=== PATIENT | male | born 1955 | race Caucasian/White ===

== ENCOUNTER 2019-01-06 07:04 | Outpatient (CLI) | payer OTHER, SELFPAY ==
[2019-01-08 09:22] LABS: PSA, Screening 1.3 ng/ml (0-4.5)
== END 2019-01-06 07:24 ==
PROVIDERS: PCP Family Medicine; Visit Provider Family Medicine
DX: Z12.5 Encounter for screening for malignant neoplasm of prostate (principal)
CPT/HCPCS: 36415; 84153

== ENCOUNTER 2019-11-24 05:57 | Outpatient (CLI) | payer OTHER, SELFPAY ==
[2019-11-24 10:24] LABS: ALT 82 U/L (16-63); AST 51 U/L (15-37); Albumin 4.1 g/dL (3.4-5.0); Alkaline Phosphatase 114 U/L (46-116); Anion Gap 7.5 mmol/L (3-11); BUN 12 mg/dL (7-18); Bilirubin, Total 0.5 mg/dL (0.2-1.0); CO2 30.5 mmol/L (21.0-32.0); CREATININE 0.92 mg/dL (0.70-1.30); Calcium 9.3 mg/dL (8.5-10.1); Calculated LDL 149 mg/dL; Chloride 103 mmol/L (98-107); Cholesterol 226 mg/dL (<200); Glucose 103 mg/dL (74-106); HDL Cholesterol 54 mg/dL (40-60); Potassium 5.1 mmol/L (3.5-5.1); Sodium 141 mmol/L (136-145); Total Protein 7.4 g/dL (6.4-8.2); Triglyceride 117 mg/dL (<150)
[2019-11-24 10:34] LABS: Uric Acid 4.7 mg/dL (3.5-7.2)
== END 2019-11-24 06:17 ==
PROVIDERS: PCP Family Medicine; Visit Provider Family Medicine
DX: M10.9 Gout, unspecified (principal); Z13.220 Encounter for screening for lipoid disorders
CPT/HCPCS: 36415; 80053; 80061; 84550

== ENCOUNTER 2020-02-14 02:21 | Outpatient (CLI) | payer MEDICARE, OTHER, SELFPAY ==
[2020-02-14 08:27] LABS: ALT 52 U/L (16-63); AST 34 U/L (15-37); Albumin 4.2 g/dL (3.4-5.0); Alkaline Phosphatase 103 U/L (46-116); Bilirubin, Total 0.5 mg/dL (0.2-1.0); Total Protein 7.4 g/dL (6.4-8.2)
== END 2020-02-14 02:41 ==
PROVIDERS: PCP Family Medicine; Visit Provider Family Medicine
DX: R74.8 Abnormal levels of other serum enzymes (principal)
CPT/HCPCS: 36415; 80076

== ENCOUNTER 2022-03-30 11:56 | Outpatient (CLI) | payer MEDICARE, OTHER, SELFPAY ==
--- NOTE | 2022-03-30 11:15 | DI.RAD_ITS ---
Exam(s) XR SHOULDER RT COMPLETE 2+V EXAM: XR SHOULDER RT COMPLETE 2+V CLINICAL HISTORY: RIGHT SHOULDER PAIN. TECHNIQUE: 2D digital imaging was performed. COMPARISON: No exams were available for comparison FINDINGS: Two views No evidence of fracture or dislocation. No calcifications in the subacromial space. However, there is a 3 x 3 millimeter calcific density interposed between the inferior articular surfaces of the elena ral head and osseous glenoid. Possible loose body at this level versus calcification in the inferior labrum. Doubtful appearance 4 osseous Bankart lesion. No lytic nor blastic osseous lesions evident . IMPRESSION: DATA REPOSITORY: RADIATION DOSE DELIVERED:
== END 2022-03-30 11:57 | disposition home or self-care (01) ==
LOC: DIORS 11:56
PROVIDERS: PCP Family Medicine; Referring Provider Family Medicine; Visit Provider Student in an Organized Health Care Education/Training Program
DX: R93.7 Abnormal findings on diagnostic imaging of other parts of musculoskeletal system; M89.9 Disorder of bone, unspecified; M75.51 Bursitis of right shoulder; S49.81XA Other specified injuries of right shoulder and upper arm, initial encounter; T50.Z95A Adverse effect of other vaccines and biological substances, initial encounter
CPT/HCPCS: 20610; 99204; 73030; J1030

== ENCOUNTER → 2022-06-02 08:15 | Outpatient (BNVA) | payer MEDICARE, OTHER, SELFPAY | PROVIDERS: PCP Family Medicine; Referring Provider Family Medicine; Visit Provider Student in an Organized Health Care Education/Training Program | DX: S49.81XA Other specified injuries of right shoulder and upper arm, initial encounter (principal); X58.XXXA Exposure to other specified factors, initial encounter; T50.Z95A Adverse effect of other vaccines and biological substances, initial encounter; M75.51 Bursitis of right shoulder | CPT/HCPCS: 99213 ==

== ENCOUNTER → 2023-07-18 13:13 | Outpatient (CLI) | payer MEDICARE, OTHER, SELFPAY ==
--- NOTE | 2023-07-18 10:45 | DI.RAD_ITS ---
Exam(s) XR CHEST 2V PA LATERAL EXAM: XR CHEST 2V PA LATERAL CLINICAL HISTORY: New onset wheezing, some dyspnea,r06.2 TECHNIQUE: 2D digital imaging was performed of the chest. Two images were obtained. PA and lateral views were obtained. COMPARISON: No exams were available for comparison FINDINGS: MEDIASTINUM: Normal. HEART: Normal. PULMONARY VASCULATURE: Normal. LUNGS: Clear. PLEURAL SPACE: No pleural effusion or pneumothorax. BONE:Within normal limits for the patient's age. OTHER FINDINGS:Normal. IMPRESSION: No acute pulmonary findings. DATA REPOSITORY: RADIATION DOSE DELIVERED:
== END ==
PROVIDERS: PCP Family Medicine; Visit Provider Family Medicine
DX: R06.2 Wheezing (principal)
CPT/HCPCS: 71046

== ENCOUNTER → 2023-11-03 08:40 | Outpatient (BNVA) | payer MEDICARE, OTHER, SELFPAY | PROVIDERS: PCP Family Medicine; Referring Provider Family Medicine; Visit Provider Student in an Organized Health Care Education/Training Program | DX: J45.909 Unspecified asthma, uncomplicated (principal); Z79.51 Long term (current) use of inhaled steroids | CPT/HCPCS: 99213 ==

== ENCOUNTER 2024-05-07 06:03 | Outpatient (CLI) | payer MEDICARE, SELFPAY ==
[2024-05-07 07:55] LABS: ALT 34 U/L (16-63); AST 24 U/L (15-37); Alkaline Phosphatase 93 U/L (46-116); Anion Gap 8.4 mmol/L (3-11); BUN 15 mg/dL (7-18); Bilirubin, Total 0.4 mg/dL (0.2-1.0); CO2 30.6 mmol/L (21.0-32.0); Calcium 9.5 mg/dL (8.5-10.1); Calculated LDL 126 mg/dL (<100); Chloride 102 mmol/L (98-107); Cholesterol 203 mg/dL (<200); Estimated GFR 80.97 (mL/min/1.73m2); Glucose 106 mg/dL (74-106); HDL Cholesterol 58 mg/dL (40-60); Potassium 4.2 mmol/L (3.5-5.1); Sodium 141 mmol/L (136-145); Total Protein 7.6 g/dL (6.4-8.2); Triglyceride 98 mg/dL (<150)
[2024-05-07 19:49] LABS: PSA, Screening 2.6 ng/mL (<=6.5)
== END 2024-05-07 06:04 | disposition home or self-care (01) ==
LOC: LBO 06:03
PROVIDERS: PCP Family Medicine; Visit Provider Family Medicine
DX: Z13.6 Encounter for screening for cardiovascular disorders (principal); Z12.5 Encounter for screening for malignant neoplasm of prostate
CPT/HCPCS: 36415; 80053; 80061; 84153

== ENCOUNTER → 2024-11-05 08:47 | Outpatient (BNVA) | payer MEDICARE, SELFPAY | PROVIDERS: PCP Family Medicine; Referring Provider Family Medicine; Visit Provider Physician Assistant Surgical | DX: J45.909 Unspecified asthma, uncomplicated (principal) | CPT/HCPCS: 99214 ==

== ENCOUNTER 2025-04-25 03:17 | Outpatient (CLI) | payer MEDICARE, SELFPAY ==
[2025-04-25 10:29] LABS: HCT 44.1 % (40.0-50.0); HGB 14.7 g/dL (13.5-17.5); MCH 30.1 pg (27.0-33.0); MCHC 33.3 % (32.0-36.0); MCV 90 fL (80-95); Platelet Count 306 10^3/uL (130-400); RBC 4.88 10^6/uL (4.36-5.78); RDW 12.7 % (11.8-14.1); RDW-SD 41.6 fL; WBC 7.44 10^3/uL (4.4-10.8)
[2025-04-25 11:19] LABS: TSH (W/Ref FT4) 2.87 uIU/mL (0.36-3.74); Uric Acid 5.6 mg/dL (3.5-7.2)
== END 2025-04-25 03:18 | disposition home or self-care (01) ==
PROVIDERS: PCP Family Medicine; Visit Provider Family Medicine
DX: R53.83 Other fatigue (principal); M10.9 Gout, unspecified
CPT/HCPCS: 36415; 85027; 84443; 84550

== ENCOUNTER 2025-04-29 06:12 | Emergency (ER) | payer MEDICARE, SELFPAY ==
[2025-04-29 06:14] VITALS: BP 174/96; PULSE 100; RESP 18; TEMP 36.2; O2SAT 99
--- NOTE | 2025-04-29 06:30 | DI.RAD_ITS ---
Exam(s) XR SHOULDER LT COMPLETE 2+V EXAM: XR SHOULDER LT COMPLETE 2+V CLINICAL HISTORY: Shoulder pain worsening over the last 2 to 3 weeks. TECHNIQUE: 2D digital imaging was performed of the left shoulder. Five images were obtained. AP, G rashey, Y-view and axillary views were obtained. COMPARISON: No exams were available for comparison FINDINGS: BONES: No acute fracture is present. No bony destructive lesion is seen. JOINTS: No dislocation present. There are mild degenerative changes seen at the acromioclavicular radha nt. The glenohumeral joint is well maintained. SOFT TISSUE: Normal. IMPRESSION: 1. Mild degenerative changes seen at the acromioclavicular joint. 2. No acute fracture or dislocation. 3. The preliminary [facility] report was reviewed. DATA REPOSITORY: RADIATION DOSE DELIVERED:
--- NOTE | 2025-04-29 06:30 | DI.RAD_ITS ---
Exam(s) XR SHOULDER RT COMPLETE 2+V EXAM: XR SHOULDER RT COMPLETE 2+V CLINICAL HISTORY: Shoulder pain worsening over the last 2 to 3 weeks. TECHNIQUE: 2D digital imaging was performed of the right shoulder. Five images were obtained. AP, Grashey, Y-view and axillary views were obtained. COMPARISON: CR XR SHOULDER RT COMPLETE 2+V from 03/30/2022 FINDINGS: BONES: No acute fracture is present. No bony destructive lesion is seen. JOINTS: No dislocation present. There is downward sloping of the lateral acromion. The glenohumeral joint is well maintained. Minimal degenerative changes are seen at the acromioclavicular joint. SOFT TISSUE: The calcification adjacent to the inferior glenoid is unchanged. IMPRESSION: 1. Mild degenerative changes seen in the right shoulder which appears stable. 2. No acute fracture or dislocation. 3. The preliminary [facility] report was reviewed. DATA REPOSITORY: RADIATION DOSE DELIVERED:
--- NOTE | 2025-04-29 07:02 | W.ED.GENAD ---
Discharge Plan Disposition Patient Disposition: Home Condition: Good Discharge Details Clinical Impression: Bilateral shoulder pain Primary Care Provider: Abdon Stephens ED Provider: Alysha Pearson Home Meds and New Rx's Prescriptions: New lidocaine [Lidoderm] 5 % adhesive patch,medicated 1 patch Topical Q24H Qty: 15 0RF No Action acetaminophen [Tylenol Extra Strength] 500 mg tablet 500 mg PO DIRECTED PRN calcium carb-D3-mag [id number] [phone] go-gcso-yx-mg tablet 1 tab PO DAILY Rx Instructions: administer with a meal allopurinol 100 mg tablet 200 mg PO DAILY Qty: 180 3RF Rx Instructions: two 100 mg tablets daily for gout ibuprofen 200 mg tablet 200 mg PO Q6H PRN albuterol sulfate [Ventolin HFA] 90 mcg/actuation HFA aerosol inhaler 2 puff inhalation QID PRN (Reason: shortness of breath or wheezing) Qty: 8.5 3RF budesonide-formoterol [Symbicort] 80-4.5 mcg/actuation HFA aerosol inhaler 2 puff inhalation BID Qty: 10.2 12RF multivitamin [Daily-Josefina] 1 EACH tablet 1 ea PO DAILY Discharge Instructions Instructions: Shoulder Pain ED Additional Instructions: Although there are no fractures in your shoulder, I am concerned that you may have bursal irritation and arthritis in your shoulder causing the pain. Please apply the Voltaren gel 3 times daily. Please continue to take Tylenol every 6 hours. Please ice your shoulders frequently whenever your pain returns. Please follow-up closely with your physical therapist. I have included phone numbers for physical therapy below, please contact them at your earliest convenience to set up an appointment time. If despite this conservative therapy you still have pain after a month or 2 of therapy and medication treatment, you may require further follow-up with an interior specialist. If you notice any worsening of your symptoms, or any new symptoms such as vomiting, diarrhea, fever, chills, shortness of breath, chest pain, numbness, weakness, or fainting , please return immediately to the emergency department for reevaluation. Please follow up with your primary care provider as soon as possible for reassessment and reevaluation. As always, it was a pleasure participating in your medical care today. Stand Alone Forms: Physical Therapy Referral Referrals: Abdon Stephens DO [Primary Care Provider] - [facility] General Date/Time Provider Initiated Documentation: 04/29/25 06:15. [facility] Narrative: This is a 69-year-old male with a past medical history of gout, previous vaccine related shoulder injury, asthma, who presents today for evaluation of shoulder pain bilaterally. Patient has a history of chronic pain today shoulders. However over the last few weeks it has been worsening. He has been applying Voltaren gel once daily at night, he has been taking occasional NSAID therapy, but despite this the pain has been worsening. The pain is bilateral, worse on the left than the right. He denies any recent ulcer or trauma. He did have a fall a few months ago, but nothing recently. He does admit to utilizing his shoulders much more these last few weeks because of out side chores and projects. He denies any chest pain or shortness of breath. He denies numbness or tingling. No other complaints at this time. Pain is made worse with movement of his shoulders. It is worse when he lies down flat. It is slightly improved when he sits up. He did recently see his primary care provider and declined physical therapy for shoulders at that time, however he feels that it might be the next best option now. Related Data Home Medications ?Medication ?Instructions ?Recorded ?Confirmed multivitamin (Daily-Josefina tablet) 1 ea PO DAILY 12/24/16 04/29/25 acetaminophen 500 mg tablet 500 mg PO DIRECTED PRN 08/02/23 04/29/25 (Tylenol Extra Strength) calcium 333 mg-vit D3 200 1 tab PO DAILY 08/02/23 04/29/25 unit-magnesium 133 mg-zinc 5 mg tablet allopurinol 100 mg tablet 200 mg (2 x 100 mg) PO DAILY #180 04/19/24 04/29/25 tab-caps albuterol sulfate 90 mcg/actuation 2 puff inhalation QID PRN 11/05/24 04/29/25 aerosol inhaler (Ventolin HFA) shortness of breath or wheezing #8.5 grams budesonide-formoterol HFA 80 2 puff inhalation BID #10.2 grams 11/05/24 04/29/25 mcg-4.5 mcg/actuation aerosol inhaler (Symbicort) ibuprofen 200 mg tablet 200 mg PO Q6H PRN 11/05/24 04/29/25 lidocaine 5 % topical patch 1 patch topical Q24H #15 ea 04/29/25 (Lidoderm) Previous Rx's ?Medication ?Instructions ?Recorded allopurinol 100 mg tablet 200 mg (2 x 100 mg) PO DAILY #180 04/19/24 tab-caps albuterol sulfate 90 mcg/actuation 2 puff inhalation QID PRN 11/05/24 aerosol inhaler (Ventolin HFA) shortness of breath or wheezing #8.5 grams budesonide-formoterol HFA 80 2 puff inhalation BID #10.2 grams 11/05/24 mcg-4.5 mcg/actuation aerosol inhaler (Symbicort) lidocaine 5 % topical patch 1 patch topical Q24H #15 ea 04/29/25 (Lidoderm) Allergies Allergy/AdvReac Type Severity Reaction Status Date / Time No Known Allergies Allergy Verified 04/29/25 06:23 General Stated Complaint: Nk/Back Pain KENNEDI: 3 Exam Narrative Exam Narrative: 1.Const: Well-nourished, Well-developed, appearing stated age 2.Eyes: PERRL, no conjunctival injection, and symmetrical lids. 3.ENT: Atraumatic external nose and ears. Moist MM. Neck: Symmetric, trachea midline, No thyromegaly. 4.CVS: +S1/S2, Peripheral pulses 2+ and equal in all extremities. Brisk capillary refill in all extremities. 5.RESP: Unlabored respiratory effort. Clear to auscultation bilaterally. No wheezes rales or rhonchi 6.GI: Soft, Nontender/Nondistended, No hepatosplenomegaly. No guarding or rebound. 7.MSK: Bilateral shoulders demonstrate restriction in motion in most all directions. Bilateral shoulders have tenderness on palpation of the anterior aspect of the shoulder around the biceps tendon in the shoulder joint, as well as significant point tenderness in the shoulder joint in the posterior component. Pain is made worse significantly with external rotation, as well as the empty can test. No redness or warmth to suggest cellulitis or acute gout. 8.Skin: Warm, Dry. No rashes or lesions. 9.Neuro: enforcement safety officer II-XII grossly intact. Sensation grossly intact, no focal neurologic deficits. 10.Psych: (AAO) x3. Appropriate mood and affect Course Vital Signs Vital signs: Vital Signs Temperature 36.2 C L 04/29/25 06:14 Pulse 100 H 04/29/25 06:14 Respiratory Rate 18 04/29/25 06:14 Blood Pressure 174/96 H 04/29/25 06:14 Pulse Oximetry 99 04/29/25 06:14 Temperature 36.2 C L 04/29/25 06:14 Temperature Source Oral 04/29/25 06:14 Pulse 100 H 04/29/25 06:14 Respiratory Rate 18 04/29/25 06:14 Blood Pressure 174/96 H 04/29/25 06:14 Blood Pressure Position Sitting 04/29/25 06:14 Pulse Oximetry 99 04/29/25 06:14 Oxygen Delivery Method Room Air 04/29/25 06:14 Oxygen Flow Rate 0 04/29/25 06:14 Pain Level 10 04/29/25 06:18 Medical Decision Making This is a 69-year-old male with a past medical history of gout, previous vaccine related shoulder injury, asthma, who presents today for evaluation of shoulder pain bilaterally. Patient has a history of chronic pain today shoulders. However over the last few weeks it has been worsening. He has been applying Voltaren gel once daily at night, he has been taking occasional NSAID therapy, but despite this the pain has been worsening. The pain is bilateral, worse on the left than the right. He denies any recent ulcer or trauma. He did have a fall a few months ago, but nothing recently. He does admit to utilizing his shoulders much more these last few weeks because of out side chores and projects. He denies any chest pain or shortness of breath. He denies numbness or tingling. No other complaints at this time. Pain is made worse with movement of his shoulders. It is worse when he lies down flat. It is slightly improved when he sits up. He did recently see his primary care provider and declined physical therapy for shoulders at that time, however he feels that it might be the next best option now. Bilateral shoulders demonstrate restriction in motion in most all directions. Bilateral shoulders have tenderness on palpation of the anterior aspect of the shoulder around the biceps tendon in the shoulder joint, as well as significant point tenderness in the shoulder joint in the posterior component. Pain is made worse significantly with external rotation, as well as the empty can test. No redness or warmth to suggest cellulitis or acute gout. Concern for chronic arthritis leading to mild chronic bursitis. Acute gouty shoulders appears less likely based on clinical assessment. Family feels very strongly about getting x-rays at this time, we will get x-rays for further assessment although I feel that a an acute fracture is unlikely. We will recommend continued Tylenol at home, Voltaren gel 3 times daily, physical therapy, and close follow-up with PCP. If conservative therapy like this fails to improve his symptoms he may require further outpatient orthopedic follow-up. Patient will be signed out to my colleague for follow-up on x-rays. Quality:SDOH Health Related Social Needs: No Data to Display PFSH All Active Problems (Updated 04/29/25 @ 07:07 by Capo Espinosa DO) Bilateral shoulder pain (Acute) Arthritis of both shoulders (Acute) Asthma (Chronic) Nail dystrophy (Acute) Onychauxis (Acute) Shoulder injury related to vaccine administration (SIRVA) (Acute) Bursitis of shoulder, right (Acute) Gout (Chronic 11/05/09) hyperuricemia, h/o podogra ~1989 Surgical History S/P excision of lipoma Hx of appendectomy Family History Mother , heart issues at age 88. Depression Anxiety Sister , lung ca at age 55. Neoplasm Daughter Anxiety Social History Smoking/Tobacco Use Status: Never Second Hand Exposure: No Smoking risk assessment performed?: Yes Alcohol Intake: never Drug use: Never Substance use type: does not use Counseling given: No Adopted: No Caregiver/Support person: No Foster care: No Household members: spouse Housing: house Number of Children: 2 number of grandchildren: 4 Communication Needs: Corrective Lenses Education Level: high school Do you need help understanding health information?: Never current occupation: Retired Pets and animals: Yes (1) Pets and animals: cat(s) Sexually active: Yes Do you think of yourself as: straight/heterosexual Current gender identity: male What is your relationship status?: How often do you talk on the phone with friends or family?: once per week How often do you get together with friends or relatives?: twice per week How often do you attend rastafarian or rastafarian services?: 4 or more times per year Do you belong to any clubs or organized social groups?: decline to answer Panel score (0-1 are the most socially isolated patients): 3 What type of physical activity do you participate in: walking Duration: 15-30 minutes/day Frequency: 1-2 times per week Bobbi/Sikhism: Baptist Special bobbi needs: No Seatbelt use: always Helmet use: Yes Helmet use: always Drive intox 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
[2025-04-29 07:52] VITALS: BP 142/86; PULSE 91; RESP 18; O2SAT 98
--- NOTE | 2025-04-29 08:17 | DI.[facility]_ITS ---
PROCEDURE INFORMATION: Exam: XR Right Shoulder Exam date and time: 04/29/2025 7:04 AM Age: 69 years old Clinical indication: Right; Shoulder pain worsening over the last 2 to 3 weeks TECHNIQUE: Imaging protocol: Radiologic exam of the right shoulder. Views: 2 or more views. COMPARISON: CR XR SHOULDER RT COMPLETE 2+V 03/30/2022 11:35 AM FINDINGS: Bones/joints: No fractures or suspicious osseous lesions are identified. There are tiny marginal osteophytes in the glenoid and acromioclavicular joint. Faint calcification is again seen along the inferior aspect of the glenohumeral joint, suspected chondrocalcinosis. Alignment is anatomic. The humeral head is not high-riding. Soft tissues: No acute or suspicious abnormality. IMPRESSION: No acute abnormality in the right shoulder. Mild degenerative changes as above. Dictated and Authenticated by: Erika Tomas MD. Orderin Francisca Scanlon MD
--- NOTE | 2025-04-29 08:19 | DI.[facility]_ITS ---
PROCEDURE INFORMATION: Exam: XR Left Shoulder Exam date and time: 04/29/2025 7:01 AM Age: 69 years old Clinical indication: Left; Shoulder pain worsening over the last 2 to 3 weeks TECHNIQUE: Imaging protocol: Radiologic exam of the left shoulder. Views: 2 or more views. COMPARISON: CR XR CHEST 2V PA LATERAL 07/18/2023 1:42 PM FINDINGS: Bones/joints: No fractures or suspicious osseous lesions are identified. Alignment is anatomic. The humeral head is not high-riding. There is mild acromioclavicular joint space narrowing with tiny marginal osteophytes and tiny foci of subcortical cystic change. There is minimal marginal spurring along the inferior glenoid rim. Soft tissues: Unremarkable. IMPRESSION: No acute abnormality in the left shoulder. Mild degenerative changes as above. Dictated and Authenticated by: Erika Tomas MD. Orderin Francisca Scanlon MD
--- NOTE | 2025-04-29 08:21 | W.EDPROG ---
Date of service: 04/29/25 Time of Service: 08:00 Medical Decision Making In brief, this is a 69-year-old male patient presented for evaluation of bilateral shoulder pain. He was signed out to me pending completion of x-ray imaging. I reviewed the x-ray images, as well as the radiology reports, and the patient is noted to have degenerative changes bilaterally, but no other acute osseous abnormalities. As noted by the previous provider, he will continue with Tylenol, Lidoderm patches, and a physical therapy referral was placed. At this time, the patient has had a full medical evaluation and is safe for discharge to home. They are hemodynamically stable, ambulatory, and tolerating PO. They are understanding of the follow-up plan and return precautions. They left our facility without incident. Alysha Pearson MD Medical Records Medical records reviewed: Yes I reviewed the patient's medical records. Quality:SDOH Health Related Social Needs: No Data to Display Discharge Plan Disposition Patient Disposition: Home Condition: Good Discharge Details Clinical Impression: Bilateral shoulder pain Primary Care Provider: Abdon Stephens ED Provider: Alysha Pearson Home Meds and New Rx's Prescriptions: New lidocaine [Lidoderm] 5 % adhesive patch,medicated 1 patch Topical Q24H Qty: 15 0RF No Action acetaminophen [Tylenol Extra Strength] 500 mg tablet 500 mg PO DIRECTED PRN calcium carb-D3-mag [id number] [phone] ti-rewk-gv-mg tablet 1 tab PO DAILY Rx Instructions: administer with a meal allopurinol 100 mg tablet 200 mg PO DAILY Qty: 180 3RF Rx Instructions: two 100 mg tablets daily for gout ibuprofen 200 mg tablet 200 mg PO Q6H PRN albuterol sulfate [Ventolin HFA] 90 mcg/actuation HFA aerosol inhaler 2 puff inhalation QID PRN (Reason: shortness of breath or wheezing) Qty: 8.5 3RF budesonide-formoterol [Symbicort] 80-4.5 mcg/actuation HFA aerosol inhaler 2 puff inhalation BID Qty: 10.2 12RF multivitamin [Daily-Josefina] 1 EACH tablet 1 ea PO DAILY Discharge Instructions Instructions: Shoulder Pain ED Additional Instructions: Although there are no fractures in your shoulder, I am concerned that you may have bursal irritation and arthritis in your shoulder causing the pain. Please apply the Voltaren gel 3 times daily. Please continue to take Tylenol every 6 hours. Please ice your shoulders frequently whenever your pain returns. Please follow-up closely with your physical therapist. I have included phone numbers for physical therapy below, please contact them at your earliest convenience to set up an appointment time. If despite this conservative therapy you still have pain after a month or 2 of therapy and medication treatment, you may require further follow-up with an outdoor recreation specialist. If you notice any worsening of your symptoms, or any new symptoms such as vomiting, diarrhea, fever, chills, shortness of breath, chest pain, numbness, weakness, or fainting , please return immediately to the emergency department for reevaluation. Please follow up with your primary care provider as soon as possible for reassessment and reevaluation. As always, it was a pleasure participating in your medical care today. Stand Alone Forms: Physical Therapy Referral Referrals: Abdon Stephens DO [Primary Care Provider] -
[2025-04-29 08:29] VITALS: BP 139/94; PULSE 85; RESP 18; O2SAT 99
--- NOTE | 2025-04-29 12:26 | NUR.NOTE ---
Prior authorization faxed to PCP to be addressed. Lidocaine 5% patch. #15. Nursing Note:
== END 2025-04-29 08:31 | disposition home or self-care (01) ==
PROVIDERS: Emergency Provider Emergency Medicine; PCP Family Medicine
DX: M25.512 Pain in left shoulder (principal); M25.511 Pain in right shoulder
CPT/HCPCS: 00123; 99283; 73030

== ENCOUNTER 2025-05-07 08:54 | Outpatient (CLI) | payer MEDICARE, SELFPAY ==
--- NOTE | 2025-05-07 07:00 | DI.RAD_ITS ---
Exam(s) XR CERVICAL SPINE COMP 4-5V EXAM: XR CERVICAL SPINE COMP 4-5V CLINICAL HISTORY: Suspect C5 /or C7 radiculopathy; in PT, cervical radiculopathy, M54.12. TECHNIQUE: 2D digital imaging was performed. COMPARISON: No exams were available for comparison FINDINGS: Seven views No evidence of fracture, listhesis, nor offset of the spinal laminar line. All the disc spaces exhib it normal height. There is mild multilevel facet arthropathy. There are no cervical ribs. Bone den sity age-appropriate. No osseous lesions evident in the cervical vertebrae. Oblique images do not r eveal evidence of Luschka joint osteophytes. IMPRESSION: Normal disc height at each level in the cervical spine. Mild facet joint degenerative changes. No L uschka joint osteophytes. No osseous lesions. DATA REPOSITORY: RADIATION DOSE DELIVERED:
== END 2025-05-07 09:14 ==
LOC: DI 08:54
PROVIDERS: PCP Family Medicine; Visit Provider Nurse Practitioner Adult Health
DX: M54.12 Radiculopathy, cervical region (principal)
CPT/HCPCS: 72050

== ENCOUNTER → 2025-05-30 09:35 | Outpatient (BNVA) | payer MEDICARE, SELFPAY | PROVIDERS: PCP Family Medicine; Referring Provider Family Medicine; Visit Provider Physical Therapy Assistant | DX: Z12.11 Encounter for screening for malignant neoplasm of colon (principal) | CPT/HCPCS: S0285 ==

== ENCOUNTER 2025-06-12 02:47 | Outpatient (CLI) | payer MEDICARE, SELFPAY ==
[2025-06-12 15:45] LABS: ESR 22 mm/hr (0-20)
[2025-06-12 16:14] LABS: ALT 25 U/L (16-63); AST 22 U/L (15-37); Albumin 3.3 g/dL (3.4-5.0); Alkaline Phosphatase 98 U/L (46-116); Anion Gap 8.7 mmol/L (3-11); BUN 9 mg/dL (7-18); Bilirubin, Total 0.3 mg/dL (0.2-1.0); C-Reactive Protein 3.00 mg/dL (<or=0.5); CO2 30.3 mmol/L (21.0-32.0); Calcium 9.1 mg/dL (8.5-10.1); Chloride 104 mmol/L (98-107); Estimated GFR 97.90 (mL/min/1.73m2); Glucose 89 mg/dL (74-106); Potassium 4.1 mmol/L (3.5-5.1); Sodium 143 mmol/L (136-145); Total Protein 7.0 g/dL (6.4-8.2)
== END 2025-06-12 02:48 | disposition home or self-care (01) ==
LOC: LBO 02:47
PROVIDERS: PCP Family Medicine; Visit Provider Nurse Practitioner Adult Health
DX: M47.812 Spondylosis without myelopathy or radiculopathy, cervical region (principal); M54.12 Radiculopathy, cervical region; R20.2 Paresthesia of skin; M79.601 Pain in right arm; M79.602 Pain in left arm
CPT/HCPCS: 36415; 80053; 85652; 86140

== ENCOUNTER → 2025-08-01 13:56 | Outpatient (BNVA) | payer MEDICARE, SELFPAY | PROVIDERS: PCP Family Medicine; Referring Provider Family Medicine; Visit Provider Nurse Practitioner Adult Health | DX: G56.01 Carpal tunnel syndrome, right upper limb (principal) | CPT/HCPCS: 99215; 95908 ==

== ENCOUNTER 2025-08-08 02:53 | Outpatient (CLI) | payer MEDICARE, SELFPAY ==
--- NOTE | 2025-08-08 06:15 | DI.MRI_ITS ---
Exam(s) MR UPPER JOINT LT WO EXAM: MR UPPER JOINT LT WO CLINICAL HISTORY: Likely b/l rotator cuff tears,ARTHRITIS LT SHOULDER,M19.012. TECHNIQUE: Multiplanar multisequence MRI was performed. COMPARISON: None. FINDINGS: BONES: There is no fracture or contusion pattern. JOINTS:The acromioclavicular joint shows mild inferior spurring. The glenohumeral joint is normal. TENDONS: Supraspinatus: Unremarkable. Infraspinatus: Unremarkable. Subscapularis: Unremarkable. Teres Minor: Unremarkable. Biceps and Almo: Unremarkable. MUSCLES: Unremarkable. GLENOID LABRUM: Unremarkable on this noncontrast examination. SOFT TISSUES: Unremarkable. BURSAE: Subacromial and subdeltoid bursae shows minimal fluid. There is a small amount of fluid in the sub coracoid bursa.. IMPRESSION: Small amount of fluid in the sub acromial subdeltoid bursa and subcoracoid bursa. Findings could indicate bursitis. Mild AC joint degenerative changes. No evidence of rotator cuff tear. DATA REPOSITORY:
--- NOTE | 2025-08-08 06:15 | DI.MRI_ITS ---
Exam(s) MR UPPER JOINT RT WO EXAM: MR UPPER JOINT RT WO CLINICAL HISTORY: Likely b/l rotator cuff tears,RT SHOULDER ARTHRITIS,M19.011. TECHNIQUE: Multiplanar multisequence MRI was performed. COMPARISON: Plain films 29 April 2025 FINDINGS: BONES: There is no fracture or contusion pattern. JOINTS:The acromioclavicular joint shows mild inferior spurring. The acromion is mildly downsloping. The glenohumeral joint is normal. TENDONS: Supraspinatus: A small focal defect in the distal anterior portion of the tendon consistent with a partial tear. Infraspinatus: Unremarkable. Subscapularis: Unremarkable. Teres Minor: Unremarkable. Biceps and Laporte: Unremarkable. MUSCLES: Unremarkable. GLENOID LABRUM: Unremarkable on this noncontrast examination. SOFT TISSUES: Unremarkable. BURSAE: Subacromial and subdeltoid bursae shows a small amount of fluid.. There is small amount of fluid in the subcoracoid bursa IMPRESSION: Small focal partial tear of the distal anterior supraspinatus tendon. DATA REPOSITORY:
== END 2025-08-08 03:13 ==
LOC: DI 02:54
PROVIDERS: PCP Family Medicine; Visit Provider Family Medicine
DX: M75.111 Incomplete rotator cuff tear or rupture of right shoulder, not specified as traumatic (principal); M19.012 Primary osteoarthritis, left shoulder
CPT/HCPCS: 73221

== ENCOUNTER → 2025-08-27 08:23 | Outpatient (BNVA) | payer MEDICARE, SELFPAY | PROVIDERS: PCP Family Medicine; Referring Provider Family Medicine; Visit Provider Student in an Organized Health Care Education/Training Program | DX: M19.011 Primary osteoarthritis, right shoulder (principal); M19.012 Primary osteoarthritis, left shoulder; M75.101 Unspecified rotator cuff tear or rupture of right shoulder, not specified as traumatic | CPT/HCPCS: 99214 ==

== ENCOUNTER → 2025-11-05 10:08 | Outpatient (BNVA) | payer MEDICARE, SELFPAY | PROVIDERS: PCP Family Medicine; Referring Provider Family Medicine; Visit Provider Internal Medicine Pulmonary Disease | DX: J45.30 Mild persistent asthma, uncomplicated (principal) | CPT/HCPCS: 99214 ==